=== PATIENT | male | born 1955 | race Caucasian/White ===

== ENCOUNTER 2020-01-24 08:10 | Inpatient (IN) | payer MEDICARE, MEDICAID ==
[~2020-01-24] VITALS: Ht 177.8 cm; Wt 80.5 kg
[2020-01-24] MEDS ORDERED: LACTATED RINGERS 1,000 ML IV SCH (09:19)
[2020-01-24] MEDS ORDERED: CHLORHEXIDINE 15 ML UDC MM ONE (09:30)
[2020-01-24] MEDS ORDERED: SCOPOLAMINE 1MG PATCH TD ONE ×2 (09:30→09:33)
[2020-01-24] MEDS ORDERED: LIDOCAINE-MPF 1%, 2ML INFIL ONE (09:30)
[2020-01-24] MEDS ORDERED: CHLORHEXIDINE 15 ML UDC ONE (09:33)
[2020-01-24 09:46] VITALS: BP 125/81
[2020-01-24] MEDS ORDERED: KETOROLAC 60 MG/2 ML ONE (09:49)
[2020-01-24] MEDS ORDERED: SODIUM CHLORIDE 0.9% 100 ML ONE (09:50)
[2020-01-24] MEDS ORDERED: ROPIvacaine/PF 0.5%, 20 ML ONE (09:50)
[2020-01-24] MEDS ORDERED: TRANEXAMIC ACID 100 MG/ML, 10ML ONE (09:50)
[2020-01-24] MEDS ORDERED: morphine SULFATE/PF 1 MG/ML, 10ML ONE (09:50)
[2020-01-24] MEDS ORDERED: EPINEPHRINE 1 MG/ML, 1ML ONE (09:50)
[2020-01-24] MEDS ORDERED: SODIUM CHLORIDE 0.9% 50 ML ONE (09:50)
[2020-01-24 09:59] LABS: BASOPHILS # (AUTO) 0.03 x10^3/uL (0-0.1); BASOPHILS % (AUTO) 0 % (0-1); EOSINOPHILS # (AUTO) 0.01 x10^3/uL (0-0.4); EOSINOPHILS % (AUTO) 0 % (1-7); LYMPHOCYTES # (AUTO) 2.39 x10^3/uL (1-3.4); LYMPHOCYTES % (AUTO) 27 % (22-44); MD NO; MEAN CORPUSCULAR HEMOGLOBIN 29.4 pg (27.5-34.5); MEAN CORPUSCULAR VOLUME 89.3 fL (81-97); MONOCYTES # (AUTO) 0.53 x10^3/uL (0.2-0.8); MONOCYTES % (AUTO) 6 % (2-9); NEUTROPHILS # (AUTO) 5.84 x10^3/uL (1.8-6.8); NEUTROPHILS % (AUTO) 66 % (42-75); PLATELET COUNT 237 x10^3/uL (130-400); RED BLOOD COUNT 5.11 x10^6/uL (4.38-5.82); RED CELL DISTRIBUTION WIDTH 14.3 % (9.4-14.8)
[2020-01-24] MEDS ORDERED: MIDAZOLAM 1 MG/ML, 2ML ONE (10:01)
[2020-01-24] MEDS ORDERED: FENTANYL PF 100 MCG/2ML ONE ×4 (10:02→12:32)
[2020-01-24] MEDS ORDERED: DEXT1DRO7 EACHEYE (10:10)
[2020-01-24] MEDS ORDERED: OMEP-110 PO (10:10)
[2020-01-24] MEDS ORDERED: DOCU-131 PO (10:10)
[2020-01-24] MEDS ORDERED: ACET325C6 PO (10:10)
[2020-01-24] MEDS ORDERED: TRAM50TA2 PO (10:10)
[2020-01-24] MEDS ORDERED: IBUP-1223 PO (10:10)
[2020-01-24] MEDS ORDERED: ASPI-496 PO (10:10)
[2020-01-24] MEDS ORDERED: LEVO100T5 PO (10:10)
[2020-01-24] MEDS ORDERED: TIZA2CAP PO (10:10)
[2020-01-24] MEDS ORDERED: DIAZ5TAB PO (10:10)
[2020-01-24 10:16] LABS: ANION GAP 7 mmol/L (5-15); CALCIUM 9.1 mg/dL (8.5-10.1); CHLORIDE 107 mmol/L (98-107); CREATININE 0.69 mg/dL (0.7-1.3)
[2020-01-24] MEDS ORDERED: DEXAMETHASONE 4 MG/ML, 1ML ONE (11:03)
[2020-01-24] MEDS ORDERED: PROPOFOL 10 MG/ML, 20ML ONE (11:03)
[2020-01-24] MEDS ORDERED: BUPIVACAINE/PF 0.25% ONE (11:03)
[2020-01-24] MEDS ORDERED: CEFAZOLIN 1,000 MG ONE (11:03)
[2020-01-24] MEDS ORDERED: ONDANSETRON 2MG/ML, 2ML ONE (11:03)
[2020-01-24] MEDS ORDERED: LIDOCAINE-MPF 2% ,5ML ONE (11:03)
[2020-01-24] MEDS ORDERED: ACETAMINOPHEN 325 MG TABLET PO PRN ×2 (12:00→12:30)
[2020-01-24] MEDS ORDERED: hydrALAzine 20 MG/ML, 1ML IV PRN (12:00)
[2020-01-24] MEDS ORDERED: LORazepam 2 MG/ML, 1ML IVPush PRN (12:00)
[2020-01-24] MEDS ORDERED: MEPERIDINE/PF 25MG/0.5ML IVPush PRN (12:00)
[2020-01-24] MEDS ORDERED: LABETALOL 5MG/ML, 20ML IV PRN (12:00)
[2020-01-24] MEDS ORDERED: PROMETHAZINE 25 MG/ML, 1ML IVPush PRN (12:00)
[2020-01-24] MEDS ORDERED: OXYcodone 5 MG/5 ML ORAL.SOL UDC PO PRN (12:00)
[2020-01-24] MEDS ORDERED: ALUMINUM/MAG/SIMETHICONE 30 ML UDC PO PRN (12:30)
[2020-01-24] MEDS ORDERED: POLYETHYLENE GLYCOL 17 GM PACKET PO PRN (12:30)
[2020-01-24] MEDS ORDERED: OXYcodone IR 5MG TABLET PO PRN ×2 (12:30)
[2020-01-24] MEDS ORDERED: PSYLLIUM PACKET PO PRN (12:30)
[2020-01-24] MEDS ORDERED: ONDANSETRON 4 MG TABLET PO PRN (12:30)
[2020-01-24] MEDS ORDERED: MAGNESIUM HYDROXIDE 8%, 30ML UDC PO PRN (12:30)
[2020-01-24] MEDS ORDERED: BISACODYL 10 MG SUPP PR PRN (12:30)
[2020-01-24] MEDS: FENTANYL PF 100 MCG/2ML IV PRN ×2 (12:34→12:46)
[2020-01-24] MEDS ORDERED: HYDROmorphone 1 MG/ML, 1ML INJ ONE (12:55)
[2020-01-24] MEDS ORDERED: OXYcodone 5 MG/5 ML ORAL.SOL UDC ONE (12:55)
[2020-01-24] MEDS: HYDROmorphone 1 MG/ML, 1ML INJ IVPush PRN ×4 (12:59→13:09)
[2020-01-24] MEDS ORDERED: TIZANIDINE 2MG TABLET PO PRN (15:00)
[2020-01-24] MEDS: ARTIFICIAL TEARS 15 DROP/ML BOTTLE EACHEYE SCH ×2 (16:00→22:20)
[2020-01-24] MEDS: INSULIN REGULAR 100 UNITS/ML, 3ML VIAL SQ-INSULIN SCH ×2 (16:00→21:00)
[2020-01-24] MEDS: OXYcodone IR 5MG TABLET PO PRN ×2 (17:54→22:20)
[2020-01-24 18:24] VITALS: BP 129/84
[2020-01-24] MEDS: CEFAZOLIN PMX 1GM/50ML 50 ML IVPB SCH (19:00)
[2020-01-24] MEDS ORDERED: DIAZEPAM 5 MG TABLET PO SCH (21:00)
[2020-01-24] MEDS: DOCUSATE 100 MG CAPSULE PO SCH (22:10)
[2020-01-24 23:52] VITALS: BP 100/62
[2020-01-25] MEDS: HYDROmorphone 1 MG/ML, 1ML INJ IVPush PRN (01:44)
[2020-01-25] MEDS: CEFAZOLIN PMX 1GM/50ML 50 ML IVPB SCH (03:01)
[2020-01-25 03:20] VITALS: BP 95/62
[2020-01-25] MEDS: OXYcodone IR 5MG TABLET PO PRN ×3 (04:11→14:03)
[2020-01-25] MEDS ORDERED: OMEPRAZOLE 20 MG CAPSULE.DR PO SCH (06:00)
[2020-01-25] MEDS ORDERED: ASPIRIN 81 MG TABLET EC PO SCH (06:00)
[2020-01-25] MEDS ORDERED: LEVOTHYROXINE 100 MCG TABLET PO SCH (06:00)
[2020-01-25] MEDS: ARTIFICIAL TEARS 15 DROP/ML BOTTLE EACHEYE SCH ×3 (06:00→16:00)
[2020-01-25] MEDS: INSULIN REGULAR 100 UNITS/ML, 3ML VIAL SQ-INSULIN SCH ×3 (07:00→16:00)
[2020-01-25 07:03] VITALS: BP 96/59
[2020-01-25] MEDS: DOCUSATE 100 MG CAPSULE PO SCH (08:15)
[2020-01-25 14:35] VITALS: BP 135/73
[2020-01-25] MEDS ORDERED: OXYC5CAP2 PO (16:34)
== END 2020-01-25 16:45 | DRG 470 ==
LOC: OUT 08:10 → EDBD 10:15 → OUT 12:30 → 4NE 12:30
PROVIDERS: ADMIT Orthopaedic Surgery; ATTEND Orthopaedic Surgery
PROC: 0SRD069 Replacement of Left Knee Joint with Oxidized Zirconium on Polyethylene Synthetic Substitute, Cemented, Open Approach (ICD-10-PCS; principal; 2020-01-24 10:15)
DX: M17.12 Unilateral primary osteoarthritis, left knee (principal); B19.20 Unspecified viral hepatitis C without hepatic coma; E11.9 Type 2 diabetes mellitus without complications; H54.8 Legal blindness, as defined in USA; Z72.0 Tobacco use
CPT/HCPCS: 80048; 82962; 85025; 87081; 87147; 93005; C1713; G0378; J0171; J0690; J1100; J1170; J1885; J2250; J2274; J2405; J2704; J2795; J3010; J3490; C1776; J7120